=== PATIENT | female | born 1990 | race Caucasian/White ===

== ENCOUNTER 2019-05-20 17:07 | Inpatient (IN) | payer OTHER ==
[2019-05-20] MEDS ORDERED: Sodium Chloride 0.9% 10 ML SDV IV PRN (17:20)
[2019-05-20] MEDS ORDERED: Butorphanol 1 MG/ML SDV IVPUSH PRN (17:20)
[2019-05-20] MEDS ORDERED: Carboprost Tromethamine 250 MCG/1 ML Amp IM PRN (17:20)
[2019-05-20] MEDS ORDERED: Sodium Chloride 0.9% 2.5 ML Syringe FLUSH PRN (17:20)
[2019-05-20] MEDS ORDERED: Tranexamic Acid 1,000 MG in Sodium Chloride 0.9% 100 ML IV PRN (17:20)
[2019-05-20] MEDS ORDERED: Lidocaine 1% 50 ML MDV INJECT PRN (17:20)
[2019-05-20] MEDS ORDERED: Misoprostol 200 MCG Tab PO PRN (17:20)
[2019-05-20] MEDS ORDERED: Water For Irrigation,Sterile 1,000 ML Container IRR PRN (17:20)
[2019-05-20] MEDS ORDERED: Sodium Chloride 0.9% 10 ML Syringe FLUSH PRN (17:20)
[2019-05-20] MEDS ORDERED: Nalbuphine 10 MG/1 ML Vial IVPUSH PRN (17:20)
[2019-05-20] MEDS ORDERED: Methylergonovine 0.2 MG/1 ML Amp IM PRN (17:20)
[2019-05-20] MEDS ORDERED: Misoprostol 25 MCG (1/4 of 100 MCG) Tab VAG PRN ×2 (17:22)
[2019-05-20] MEDS ORDERED: Terbutaline 1 MG/ML SDV SUBCUT PRN (17:22)
[2019-05-20] MEDS ORDERED: Lactated Ringers 1,000 ML IV SCH (17:30)
[2019-05-20] MEDS ORDERED: Oxytocin/0.9 % Sodium Chloride 30 UNIT/500 ML BAG IV SCH ×2 (17:30)
[2019-05-20 18:10] LABS: BLOOD UREA NITROGEN,BUN 6 mg/dL (7.0-18.0); CARBON DIOXIDE,CO2 21.3 mmol/L (21.0-32.0); CHLORIDE,CL 106 mmol/L (98-107); GLUCOSE RANDOM 99 mg/dL (74-106); POTASSIUM,K 3.8 mmol/L (3.5-5.1); SODIUM,NA 140 mmol/L (136-145)
[2019-05-21] MEDS ORDERED: Lidocaine 1% 50 ML MDV ONE (07:06)
[2019-05-21] MEDS ORDERED: Aluminum Hydroxide/Magnesium Hydroxide/Simethicone Susp 30 ML Cup PO PRN (07:36)
[2019-05-21] MEDS ORDERED: Witch Hazel Medicated Pads 40/Jar TOP PRN (07:36)
[2019-05-21] MEDS ORDERED: Acetaminophen 500 MG Tab PO PRN ×2 (07:36)
[2019-05-21] MEDS ORDERED: Bisacodyl 10 MG Supp RECTAL PRN (07:36)
[2019-05-21] MEDS ORDERED: oxyCODONE 5 MG Tab PO PRN (07:36)
[2019-05-21] MEDS ORDERED: Ibuprofen 400 MG Tab PO PRN (07:36)
[2019-05-21] MEDS ORDERED: Benzocaine/Menthol 20%-0.5% Spray 78 GM Cannister TOP PRN (07:36)
[2019-05-21] MEDS ORDERED: Lanolin 100% Cream 7 GM Tube TOP PRN (07:36)
--- NOTE | 2019-05-21 07:44 | PCM.OPNOTE ---
- General Post-Op/Procedure Note Date of Surgery/Procedure: 05/21/19 Operative Procedure(s): /2nd MLL repaired Findings: Viable male APGARs 8, 9 weight pending. Spontaneous delivery intact placenta with 3V cord. Pre Op Diagnosis: 37/2 week IUP. Gestational HTN Post-Op Diagnosis: Same Anesthesia Technique: Local, Other (see below) (pudendal) Primary Surgeon: Yudi Horn EBL in mLs: 300 Complications: none known Condition: Good Free Text/Narrative:: Dictation [id number]
[2019-05-21] MEDS: Ibuprofen 800 MG Tab PO PRN ×3 (09:10→22:53)
--- NOTE | 2019-05-21 10:24 | OR ---
SURGEON: Yudi Horn M.D. DATE OF PROCEDURE: 05/21/2019 PREOPERATIVE DIAGNOSES: 1. A 37-2/7 weeks' intrauterine . 2. Induction of labor for gestational hypertension. POSTOPERATIVE DIAGNOSES: 1. A 37-2/7 weeks' intrauterine . 2. Induction of labor for gestational hypertension. PROCEDURE: Spontaneous vaginal delivery with second-degree midline laceration repair. PRIMARY SURGEON: Yudi Horn MD. ANESTHESIA: Local with pudendal. ESTIMATED BLOOD LOSS: 250 mL. COMPLICATIONS: None known. FINDINGS: Viable male. score 8 at one minute and 9 at five minutes. Weight is pending. Spontaneous delivery, intact placenta, 3-vessel cord. DISPOSITION: The patient in LDRP, stable. to nursery. PROCEDURE IN DETAIL: Maida is a 29-year-old female who presented on the evening of 05/20/2019 for scheduled induction of labor due to gestational hypertension. Initially, blood pressures were 140s over 90s. However, over the next hour and with rest, became 120s to 130s over 80s. PIH labs were reassuring. No protein in the urine. Reactive NST was obtained. Therefore, the patient was initiated on Cytotec ripening. Received 2 doses of Cytotec and began having much more active labor pattern. She progressed very quickly on the feed mixer of 05/21/2019 from 4 to 5 cm to complete, 100% effaced, at a +2 station. I was called for delivery. Upon my arrival, the patient was placed in modified dorsal lithotomy position, was prepped and draped in usual aseptic manner. Began pushing efforts, pushed nicely to a +2 station. She had one regional anesthesia. Therefore, offered epidural instead, and she was progressing so quickly. She underwent a pudendal block satisfactorily using 1% lidocaine, was able to palpate the pudendal notch on the right side then left and infiltrated each of these regions with 5 mL of 1% lidocaine and another 5 mL in the midline perineum. The patient continued with pushing efforts, pushed readily, and was able to deliver infant's head atraumatically spontaneously, followed by anterior shoulder, posterior shoulder, and remainder of the body without difficulty. The infant's oropharynx and nares were bulb suctioned, and the 's was handed off to his mother with attending nursing staff at her side. Cord arterial, cord venous, cord blood sampling obtained. Light pressure was applied while the placenta was delivered spontaneously intact. Vigorous fundal uterine massage was then applied while 30 units of Pitocin was delivered in 500 mL of IV fluid. Upon inspection of cervix, vaginal sidewall, and perineum, there was found to be a second-degree midline laceration, repaired using 3-0 Vicryl in the usual fashion. The patient tolerated the repair very nicely. Uterus remained firm. Hemostasis evident. Sponge and instrument count was correct. The patient will remain in LDRP, to nursery. VAISHALI / MAXIMO /[id number] VINICIUS
[2019-05-21] MEDS: Docusate Sodium 100 MG Cap PO PRN (21:03)
[2019-05-22] MEDS: Ibuprofen 800 MG Tab PO PRN (07:35)
[2019-05-22] MEDS: Docusate Sodium 100 MG Cap PO PRN (07:35)
--- NOTE | 2019-05-22 08:01 | PCM.PNPP ---
- General Info Date of Service: 05/22/19 Functional Status: Reports: Pain Controlled, Tolerating Diet, Ambulating, Urinating - Review of Systems General: Reports: No Symptoms HEENT: Reports: No Symptoms Pulmonary: Reports: No Symptoms Cardiovascular: Reports: No Symptoms Gastrointestinal: Reports: No Symptoms Genitourinary: Reports: No Symptoms Musculoskeletal: Reports: No Symptoms Skin: Reports: No Symptoms Neurological: Reports: No Symptoms Psychiatric: Reports: No Symptoms - General Info Date of Service: 05/22/19 - Patient Data Vital Signs - Most Recent: Last Vital Signs Temp 36.4 C 05/22/19 05:30 Pulse 86 05/22/19 05:30 Resp 18 05/22/19 05:30 BP 142/86 H 05/22/19 05:30 Pulse Ox 97 05/22/19 05:30 Weight - Most Recent: 95.254 kg Lab Results - Last 24 Hours: Laboratory Results - last 24 hr 05/22/19 Range/Units 05:51 Hgb 11.8 L (12.0-16.0) g/dL Hct 36.4 (36.0-46.0) % Med Orders - Current: Current Medications Acetaminophen (Tylenol Extra Strength) 500 mg PO Q4H PRN PRN Reason: Pain Acetaminophen (Tylenol Extra Strength) 1,000 mg PO Q4H PRN PRN Reason: Pain Al Hydroxide/Mg Hydroxide (Mag-Al Plus) 30 ml PO Q8H PRN PRN Reason: Heartburn Benzocaine/Menthol (Dermoplast Pain Relief 20%-0.5% Pompey) 78 gm TOP ASDIRECTED PRN PRN Reason: Perineal Comfort Measure Last Admin: 05/21/19 09:09 Dose: 1 canister Bisacodyl (Dulcolax) 10 mg RECTAL ONETIME PRN PRN Reason: Constipation Carboprost Tromethamine (Hemabate Ds) 250 mcg IM ASDIRECTED PRN PRN Reason: Post Hemorrhage Docusate Sodium (Colace) 100 mg PO BID PRN PRN Reason: Constipation Last Admin: 05/22/19 07:35 Dose: 100 mg Emollient Ointment (Lansinoh Hpa) 0 gm TOP ASDIRECTED PRN PRN Reason: Sore Nipples Last Admin: 05/21/19 21:02 Dose: 7 gram Lactated Ringer's (Ringers, Lactated) 1,000 mls @ 150 mls/hr IV ASDIRECTED MARLYN Last Admin: 05/21/19 06:18 Dose: 999 mls/hr Oxytocin/Sodium Chloride (Oxytocin 30 Unit/500 Ml-Ns) 30 unit in 500 mls @ 500 mls/hr IV TITRATE MARLYN Last Admin: 05/21/19 07:14 Dose: 500 mls/hr Tranexamic Acid 1,000 mg/ (Sodium Chloride) 110 mls @ 660 mls/hr IV ONETIME PRN PRN Reason: Bleeding Oxytocin/Sodium Chloride (Oxytocin 30 Unit/500 Ml-Ns) 30 unit in 500 mls @ 2 mls/hr IV TITRATE [facility]; Protocol Ibuprofen (Motrin) 400 mg PO Q4H PRN PRN Reason: Pain Ibuprofen (Motrin) 800 mg PO Q6H PRN PRN Reason: Pain Last Admin: 05/22/19 07:35 Dose: 800 mg Methylergonovine Maleate (Methergine) 0.2 mg IM ASDIRECTED PRN PRN Reason: Post Hemorrhage Oxycodone HCl (Oxycodone) 5 mg PO Q2H PRN PRN Reason: Pain Sodium Chloride (Saline Flush) 10 ml FLUSH ASDIRECTED PRN PRN Reason: Keep Vein Open Sodium Chloride (Saline Flush) 2.5 ml FLUSH ASDIRECTED PRN PRN Reason: Keep Vein Open Sodium Chloride (Normal Saline) 10 ml IV ASDIRECTED PRN PRN Reason: IV Use Sterile Water (Sterile Water For Irrigation) 1,000 ml IRR ASDIRECTED PRN PRN Reason: delivery Witch Odilia (Tucks) 1 pad TOP ASDIRECTED PRN PRN Reason: comfort care Last Admin: 05/21/19 09:09 Dose: 1 tub Discontinued Medications Butorphanol Tartrate (Stadol) 1 mg IVPUSH Q1H PRN PRN Reason: Pain Last Admin: 05/21/19 06:20 Dose: 1 mg Lidocaine HCl (Xylocaine 1%) 50 ml INJECT ONETIME PRN PRN Reason: Laceration repair Last Admin: 05/21/19 07:08 Dose: 50 ml Lidocaine HCl (Xylocaine 1%) Confirm Administered Dose 50 ml .ROUTE .STK-MED ONE Stop: 05/21/19 07:07 Misoprostol (Cytotec) 200 mcg PO ONETIME PRN PRN Reason: Post Hemorrhage Misoprostol (Cytotec) 25 mcg VAG ONETIME PRN PRN Reason: Cervical Ripening Last Admin: 05/20/19 18:20 Dose: 25 mcg Misoprostol (Cytotec) 25 mcg VAG Q4H PRN PRN Reason: Cervical Ripening Last Admin: 05/21/19 00:30 Dose: 25 mcg Nalbuphine HCl (Nubain) 10 mg IVPUSH Q1H PRN PRN Reason: Pain (severe 7-10) Terbutaline Sulfate (Brethine) 0.25 mg SUBCUT ASDIRECTED PRN PRN Reason: Tacysystole - Interaction Disposition, : in Room with Family Infant Interaction: Holding Infant Feeding: Breastfed Infant; Nursed Well - Recovery Exam Fundal Tone: Firm Fundal Level: 1 Fingerbreadths Below Umbilicus Fundal Placement: Midline Lochia Amount: Scant, Small Lochia Color: Rubra/Red Perineum Description: Other (see below) Other Perinuem Description: 1st degree laceration Episiotomy/Laceration: Approximated Bladder Status: Voiding Urinary Elimination: Voided - Exam General: Alert, Oriented Lungs: Normal Respiratory Effort GI/Abdominal Exam: Normal Bowel Sounds, Non-Tender, No Distention Extremities: Normal Inspection, Normal Range of Motion Neurological: No New Focal Deficit Psy/Mental Status: Alert, Normal Affect, Normal Mood - Problem List & Annotations (1) Vaginal delivery SNOMED Code(s): 995626593 Code(s): O80 - ENCOUNTER FOR FULL-TERM UNCOMPLICATED DELIVERY Status: Acute Current Visit: Yes (2) Gestational hypertension SNOMED Code(s): 433795539 Code(s): O13.9 - GESTATIONAL HTN W/O SIGNIFICANT PROTEINURIA, UNSP TRIMESTER Status: Acute Current Visit: Yes - Problem List Review Problem List Initiated/Reviewed/Updated: Yes - My Orders Last 24 Hours: My Active Orders 05/22/19 07:25 Ready for Discharge [RC] PER UNIT ROUTINE - Assessment Assessment:: PPD#1 after , stable, BP improved. Minimal lochia, pain well controlled. - Plan Plan:: Discharge instructions reviewed, may dismiss to home later today. Keep BP check this week.
== END 2019-05-22 12:55 | disposition home or self-care (01) | DRG 807 ==
LOC: MW.OBCHECK 17:07 → MW.OB 17:10 → MW.OBCHECK 17:20 → MW.OB 17:20 → OBSVTOIN 05-21 07:12 → MW.OBCHECK 05-21 07:17 → MW.OB 05-21 07:17
PROVIDERS: ADMIT Obstetrics & Gynecology; ATTEND Obstetrics & Gynecology
PROC: 10E0XZZ Delivery of Products of Conception, External Approach (ICD-10-PCS; principal; 2019-05-21)
PROC: 0KQM0ZZ Repair Perineum Muscle, Open Approach (ICD-10-PCS; 2019-05-21)
PROC: 3E0P7VZ Introduction of Hormone into Female Reproductive, Via Natural or Artificial Opening (ICD-10-PCS; 2019-05-21)
DX: O13.4 Gestational [pregnancy-induced] hypertension without significant proteinuria, complicating childbirth (principal); Z37.0 Single live birth; O70.1 Second degree perineal laceration during delivery; Z3A.37 37 weeks gestation of pregnancy; Z79.899 Other long term (current) drug therapy
CPT/HCPCS: 36415; 80053; 82570; 82803; 84156; 84550; 85014; 85018; 85027; 86592; 86850; 86900; 86901; A9270-GY; J0595; J2001; J2590; J7120